=== PATIENT | female | born 1965 | race Caucasian/White ===

== ENCOUNTER 2020-07-31 21:30 | Emergency (ER) | payer MEDICAID ==
[~2020-07-31] VITALS: Ht 162.6 cm; Wt 63.0 kg
[2020-07-31] MEDS ORDERED: UNABLE MC (21:55)
[2020-07-31 22:14] LABS: BILIRUBIN,URINE SMALL (NEG); CLARITY,URINE TURBID; NITRITE,URINE NEGATIVE (NEG); PH,URINE 5.5 (<5.0-8.0); PROTEIN,URINE 30 mg/dL (NEG-TRACE)
[2020-07-31 22:17] LABS: COLOR,URINE AMBER
[2020-07-31 22:21] LABS: AMORPHOUS SEDIMENT,UR PRESENT /HPF; BACTERIA,URINE FEW /HPF (0-FEW); BARBITURATES NEG (NEG); BENZODIAZEPINES POS (NEG); CANNABINOIDS NEG (NEG); COCAINE NEG (NEG); HYALINE CASTS, URINE FEW /HPF; METHADONE NEG (NEG); OPIATES NEG (NEG); PHENCYCLIDINE NEG (NEG)
[2020-07-31 22:23] LABS: AMPHETAMINE/METHAMPHETAMINE POS (NEG)
--- NOTE | 2020-07-31 22:57 | ED.ADGEN ---
Past Medical History Past Medical History: Diabetes-Type II, High Cholesterol, Hypertension, H ypothyroid, Seizure, Other Additional Past Medical Histor: MS,SPINAL CEREBELLAR ATAXIA,EPILEPSY,HODGKINS L YMPHOMA,OSTOMY HERNIA Past Surgical History: Colectomy, Hysterectomy, Other Additional Past Surgical Histo: 7 X COLOSTOMY,RIGHT SHOULDER Smoking Status: Current Every Day Smoker Alcohol Use: None Social History Narrative: DENIES General Adult EDM: Chief Complaint: ALTERED MENTAL STATUS HPI: HPI: Patient is a 55 year old female who presents to the emergency room via EMS with concerns of bugs coming out of her skin and worms being in her feces. EMS reports they had to give patient medication en route to the ER in order to calm her down. The patient had ripped off her colostomy bag and was covered in feces on their arrival. The patient is alert and oriented to person, place, date, year, president, and situation. She denies any illicit drug use. EMS reports that they were informed of methamphetamine use at the patient's home. Patient currently denies any pain. Review of Systems: Review of Systems: Complete review of systems is negative unless otherwise documented in the HPI Allergies: Allergies: Allergies Coded Allergies Type Severity Reaction Last Updated Verified No Known Drug Allergies 07/31/20 No Physical Exam: PE: Constitutional: Well developed, well nourished, no acute distress, intoxicated appearance HENT: Normocephalic, atraumatic, bilateral external ears normal, nose normal. [] Eyes: PERRLA, EOMI, conjunctiva normal, no discharge. [] Neck: Normal range of motion, no stridor. [] Cardiovascular:Heart rate regular rhythm Lungs & Thorax: Respirations even and unlabored, no retractions, no respiratory distress Abdomen: soft, no tenderness, ostomy bag present in the left side of abdomen Skin: Warm, dry; scattered maculopapular rash with some vesicles present to bi lateral upper extremities, chest, groin, and back, concerning for scabies; patient has dried feces all over her body. Extremities: No cyanosis, ROM intact, no edema. [] Neurologic: Alert and oriented X 4, no focal deficits noted. [] Psychologic: Affect anxious, judgement normal, mood paranoid, visual hallucinations of bugs coming out of her skin Current Patient Data: Labs: Laboratory Tests Test 07/31/20 22:08 Urine Collection Type U cath Urine Color Felicia Urine Clarity Turbid Urine pH 5.5 (<5.0-8.0) Urine Specific [place] 1.025 (1.000-1.030) Urine Protein 30 mg/dL (NEG-TRACE) Urine Glucose (UA) Negative mg/dL (NEG) Urine Ketones (Stick) Trace mg/dL (NEG) Urine Blood Moderate (NEG) Urine Nitrite Negative (NEG) Urine Bilirubin Small (NEG) Urine Urobilinogen Dipstick 1.0 mg/dL (0.2 mg/dL) Urine Leukocyte Esterase Small (NEG) Urine RBC 11-20 /HPF (0-2) Urine WBC 5-10 /HPF (0-4) Urine Squamous Epithelial Cells Occ /LPF Urine Amorphous Sediment Present /HPF Urine Bacteria Few /HPF (0-FEW) Urine Hyaline Casts Few /HPF Urine Mucus Marked /LPF Urine Opiates Screen Neg (NEG) Urine Methadone Screen Neg (NEG) Urine Barbiturates Neg (NEG) Urine Phencyclidine Screen Neg (NEG) Urine Amphetamine/Methamphetamine Pos (NEG) Urine Benzodiazepines Screen Pos (NEG) Urine Cocaine Screen Neg (NEG) Urine Cannabinoids Screen Neg (NEG) Urine Ethyl Alcohol Neg (NEG) Vital Signs: Vital Signs Date Time Temp Pulse Resp B/P (MAP) Pulse Ox O2 Delivery O2 Flow Rate FiO2 07/31/20 21:31 97.7 77 18 139/83 (101) 97 Room Air 97.7 EKG: EKG: [] Heart Score: Risk Factors: Risk Factors: DM, Current or recent (<one month) smoker, HTN, HLP, family history of CAD, obesity. Risk Scores: Score 0 - 3: 2.5% MACE over next 6 weeks - Discharge Home Score 4 - 6: 20.3% MACE over next 6 weeks - Admit for Clinical Observation Score 7 - 10: 72.7% MACE over next 6 weeks - Early Invasive Strategies Radiology/Procedures: Radiology/Procedures: [] Course & Med Decision Making: Course & Med Decision Making Pertinent Labs and Imaging studies reviewed. (See chart for details) 55-year-old female presented to the emergency room with concerns of bugs coming out of her skin and being in her feces. Physical exam was concerning for scabies infestation. The patient's urine revealed amphetamines and benzodiazepines, the patient had been given Versed in route due to agitation. Vital signs were stable. I informed the patient that there did not appear to be any bugs coming out of her skin and that she did not have any worms present in her stool. I informed her of the methamphetamine that was in her urine. I encouraged the patient to stop using methamphetamine. We will prescribe Elimite for treatment of scabies. Recommend follow-up with primary care doctor return to the ER if symptoms worsen. [] Thanh Disclaimer: Dragana Disclaimer: This electronic medical record was generated, in whole or in part, using a voice recognition dictation system. Departure Departure Impression: Primary Impression: Scabies Additional Impressions: Methamphetamine abuse Visual hallucinations Referrals: NO PCP (PCP) Patient Instructions: Methamphetamine Abuse, Complications, Scabies Additional Instructions: STOP USING METHAMPHETAMINES. Fill the prescription(s) and use as directed, may repeat treatment in one week if needed. Follow up with your primary care doctor if symptoms persist. Return to the ER if symptoms worsen. Scripts Permethrin (ELIMITE) 60 Gm Cream..g. 1 KRISTAL TP ONCE, #60 GM 1 Refill massage into skin from head to soles of feet 1x, leave on for 8-14 hours then wash off. May repeat in one week if needed. Prov: MERE CANTOR APRN 07/31/20 Problem Qualifiers MERE CANTOR APRN Jul 31, 2020 22:57
[2020-07-31] MEDS ORDERED: PERM60CR11 TP (23:07)
[2020-07-31 23:30] VITALS: BP 152/86
== END 2020-08-01 00:28 | disposition home or self-care (01) ==
LOC: ER 21:30
DX: B86 Scabies (principal); R21 Rash and other nonspecific skin eruption; R44.1 Visual hallucinations; F15.90 Other stimulant use, unspecified, uncomplicated; E11.9 Type 2 diabetes mellitus without complications; E78.00 Pure hypercholesterolemia, unspecified; I10 Essential (primary) hypertension; E03.9 Hypothyroidism, unspecified; F17.200 Nicotine dependence, unspecified, uncomplicated; Z90.89 Acquired absence of other organs; Z90.710 Acquired absence of both cervix and uterus; Z98.890 Other specified postprocedural states
CPT/HCPCS: 51702; 80307; 81001; 87086; 99285